=== PATIENT | male | born 1965 | race Caucasian/White ===

== ENCOUNTER 2019-03-07 08:04 | Observation (INO) ==
[2019-03-07] MEDS ORDERED: Ondansetron 4 MG/2 ML VIAL IVP ONE (08:13)
[2019-03-07] MEDS ORDERED: diazePAM 10 MG/2 ML SYRINGE IVP ONE ×2 (08:15→09:17)
--- NOTE | 2019-03-07 08:18 | Emergency Department Note ---
Disposition Clinical Impression: Chest pain Disposition: Admitted As Inpatient Condition: Fair General Adult HPI - General Chief complaint: ED Chest Pain Stated complaint: CP Time Seen by Provider: 03/07/19 08:12 Nursing Notes Reviewed: Yes Vital Signs Reviewed: Yes - Related Data Home Medications Medication Instructions Recorded Confirmed Albuterol Sulfate [Ventolin Hfa] 2 puff IH Q4H PRN 12/05/15 12/05/15 Budesonide/Formoterol 160/4.5 2 puff IH BIDR 12/05/15 12/05/15 [Symbicort 160/4.5] Citalopram Hydrobromide [Celexa] 40 mg PO DAILY 12/05/15 12/05/15 Fluticasone Propionate Nasal 1 spray NS BID 12/05/15 12/05/15 [Flonase] Folic Acid 0.4 mg PO DAILY 12/05/15 12/05/15 Losartan Potassium [Cozaar] 100 mg PO DAILY 12/05/15 12/05/15 Meloxicam [Mobic] 15 mg PO DAILY 12/05/15 12/05/15 Montelukast [Singulair] 10 mg PO HS 12/05/15 12/05/15 Multivitamin [Multi-Day Vitamins] 1 each PO DAILY 12/05/15 12/05/15 Oxygen 2 l NS AD 12/05/15 12/05/15 Paliperidone [Invega] 6 mg PO DAILY 12/05/15 12/05/15 Pantoprazole Sodium [Protonix] 40 mg PO DAILY 12/05/15 12/05/15 Pravastatin Sodium [Pravachol] 20 mg PO HS 12/05/15 12/05/15 diazePAM [Valium] 5 mg PO TID 12/05/15 12/05/15 lamoTRIgine [Lamictal] 200 mg PO BID 12/05/15 12/05/15 Previous Rx's Medication Instructions Recorded Aspirin Enteric Coated [Aspirin EC] 325 mg PO BID #60 tablet. 12/06/15 Docusate [Colace] 100 mg PO BID #60 capsule 12/06/15 OxyCODONE Immed Rel [Roxicodone 5 5 - 10 mg PO Q4HR PRN #60 tablet 12/06/15 MG] OxyCODONE/APAP 5/325 [Percocet 1 - 2 each PO Q4HR PRN #90 tablet 12/06/15 5/325 MG] Meloxicam 7.5 mg PO BID #20 tablet 08/27/17 Naproxen [Naprosyn] 250 mg PO BID #10 tablet 06/27/18 Allergies Allergy/AdvReac Type Severity Reaction Status Date / Time acetaminophen AdvReac Itching Verified 08/27/17 13:19 [From Tylenol-Codeine] cephalexin [From Keflex] AdvReac Nausea Verified 08/27/17 13:19 codeine AdvReac Itching Verified 08/27/17 13:19 [From Tylenol-Codeine] fluoxetine [From Prozac] AdvReac Difficulty Verified 08/27/17 13:19 Swallowing [place] AdvReac Dry Mucus Verified 08/27/17 13:19 Membranes tramadol AdvReac Irritable Verified 08/27/17 13:19 Past Medical History - Past Medical History Medical history: Reports: other Surgical history: Reports: herniorrhaphy, orthopedic, other, other Psychiatric history: Reports: anxiety, bipolar, depression - Social History Smoking Status: Former smoker Smokeless Tobacco Status: No Alcohol use: Reports: none Drug use: Reports: none Course Vital Signs Temperature 98.6 F 03/07/19 08:09 Pulse Rate 93 03/07/19 08:09 Respiratory Rate 22 03/07/19 08:09 Blood Pressure 117/82 03/07/19 08:09 O2 Sat by Pulse Oximetry 98 03/07/19 08:09 Temperature 98.6 F 03/07/19 08:16 Pulse Rate 70 03/07/19 10:49 Respiratory Rate 22 03/07/19 10:49 Blood Pressure 134/83 03/07/19 10:49 O2 Sat by Pulse Oximetry 93 03/07/19 10:49 Oxygen Delivery Oxygen Delivery Room Air Medical Decision Making - [facility] Narrative Medical decision making narrative: Chest X-Ray 03/07/19 08:13 IMPRESSION: No acute process. Dextrocardia. D/ / Vinicius Mcdonald MD / Vinicius Mcdonald MD Interpreting Provider: Vinicius Mcdonald MD 0957 hrs.: After 3 nitros his chest pain is gone. His heart score is in the moderate range. We will bring him into the hospital. He is in agreement with plan. Impression is chest pain. And today has a pain chronic use, and anxiety. - Lab Data Result diagrams: 03/07/19 08:37 03/07/19 08:37 Lab Results 03/07/19 03/07/19 03/07/19 Range/Units 08:37 08:37 09:50 WBC 10.3 (4.3-11.1) K/mcL RBC 4.70 (4.19-5.50) M/mcL Hgb 14.2 (12.9-16.9) g/dL Hct 40.3 (37.5-50.1) % MCV 85.7 (83.0-100.0) fL MCH 30.2 (28.0-33.3) pg MCHC 35.2 (31.6-35.5) g/dL RDW 12.5 (11.5-14.5) % Plt Count 214 (140-400) K/mcL MPV 10.6 (9.4-12.4) fL Immature Gran % 0.5 (0-4) % Seg Neutrophils % 66.8 % Lymphocytes % 21.2 % Monocytes % 8.1 % Eosinophils % 2.8 % Basophils % 0.6 % Neutrophils # 6.9 (1.6-8.9) K/mcL Lymphocytes # 2.2 (0.6-4.6) K/mcL Monocytes # 0.8 (0.0-1.3) K/mcL Eosinophils # 0.3 (0.0-0.6) K/mcL Basophils # 0.1 (0.0-0.2) K/mcL Sodium 139 (136-145) mEq/L Potassium 3.5 (3.5-5.1) mEq/L Chloride 104 (98-107) mEq/L Carbon Dioxide 29 (23-29) mEq/L BUN 9 (6-20) mg/dL Creatinine 0.81 (0.70-1.30) mg/dL Est GFR ( Amer) > 60 (> 60) Est GFR (Non-Af Amer) > 60 (> 60) BUN/Creatinine Ratio 11 (6-26) Glucose 101 (70-105) mg/dL Calculated Osmolality 287 (280-300) Calcium 9.4 (8.6-10.3) mg/dL Magnesium 2.1 (1.6-2.6) mg/dL Troponin I < 0.03 (< 0.04) ng/mL Urine Color Yellow (Yellow) Urine Clarity Clear (Clear) Urine pH 6.5 (5.0-8.0) pH Units Ur Specific [place] 1.008 L (1.010-1.025) Urine Protein Negative (Neg-Trace) mg/dL Urine Glucose (UA) Normal (Normal) mg/dL Urine Ketones Negative (Negative) mg/dL Urine Blood Negative (Negative) Urine Nitrite Negative (Negative) Urine Bilirubin Negative (Negative) Urine Urobilinogen Normal (Normal) mg/dL Ur Leukocyte Esterase Trace H (Negative) Urine Microscopic RBC 0-3 (0-3) per hpf Urine Microscopic WBC 0-3 (0-3) per hpf Ur Squamous Epith Cells Moderate H (None-Few) per lpf Urine Bacteria None Seen (None-Few) per hpf Hyaline Casts None Seen (None-Few) per lpf Ur Culture Indicated? YES A (NO) Urine Opiates Screen (Mrmwya=641) ng/mL Ur Barbiturates Screen (Fujvkb=981) ng/mL Ur Phencyclidine Scrn (Cutoff=25) ng/mL Ur Amphetamines Screen ([place]=1890) ng/mL U Benzodiazepines Scrn (Azsjjp=246) ng/mL Urine Cocaine Screen (Cutoff= 300) ng/mL U Marijuana (THC) Screen (Cutoff = 50) ng/mL Ur Drug Screen Interp 03/07/19 Range/Units 09:57 WBC (4.3-11.1) K/mcL RBC (4.19-5.50) M/mcL Hgb (12.9-16.9) g/dL Hct (37.5-50.1) % MCV (83.0-100.0) fL MCH (28.0-33.3) pg MCHC (31.6-35.5) g/dL RDW (11.5-14.5) % Plt Count (140-400) K/mcL MPV (9.4-12.4) fL Immature Gran % (0-4) % Seg Neutrophils % % Lymphocytes % % Monocytes % % Eosinophils % % Basophils % % Neutrophils # (1.6-8.9) K/mcL Lymphocytes # (0.6-4.6) K/mcL Monocytes # (0.0-1.3) K/mcL Eosinophils # (0.0-0.6) K/mcL Basophils # (0.0-0.2) K/mcL Sodium (136-145) mEq/L Potassium (3.5-5.1) mEq/L Chloride (98-107) mEq/L Carbon Dioxide (23-29) mEq/L BUN (6-20) mg/dL Creatinine (0.70-1.30) mg/dL Est GFR ( Amer) (> 60) Est GFR (Non-Af Amer) (> 60) BUN/Creatinine Ratio (6-26) Glucose (70-105) mg/dL Calculated Osmolality (280-300) Calcium (8.6-10.3) mg/dL Magnesium (1.6-2.6) mg/dL Troponin I (< 0.04) ng/mL Urine Color (Yellow) Urine Clarity (Clear) Urine pH (5.0-8.0) pH Units Ur Specific [place] (1.010-1.025) Urine Protein (Neg-Trace) mg/dL Urine Glucose (UA) (Normal) mg/dL Urine Ketones (Negative) mg/dL Urine Blood (Negative) Urine Nitrite (Negative) Urine Bilirubin (Negative) Urine Urobilinogen (Normal) mg/dL Ur Leukocyte Esterase (Negative) Urine Microscopic RBC (0-3) per hpf Urine Microscopic WBC (0-3) per hpf Ur Squamous Epith Cells (None-Few) per lpf Urine Bacteria (None-Few) per hpf Hyaline Casts (None-Few) per lpf Ur Culture Indicated? (NO) Urine Opiates Screen Negative (Kslrmq=665) ng/mL Ur Barbiturates Screen Negative ([place]=197) ng/mL Ur Phencyclidine Scrn Negative (Cutoff=25) ng/mL Ur Amphetamines Screen Positive H (Ebebts=9756) ng/mL U Benzodiazepines Scrn Positive H (Gclrfr=041) ng/mL Urine Cocaine Screen Negative (Cutoff= 300) ng/mL U Marijuana (THC) Screen Positive H (Cutoff = 50) ng/mL Ur Drug Screen Interp See Below Attestation Statement - Attestation Attestation: This documentation is done with the assistance of Edy dictation. Despite efforts made to ensure accuracy, there may be inaccuracies in validation manager or spelling and typographical errors. I examined this patient and my medical decision-making was reviewed with the Resident Physician. I agree with the documented findings, disposition and treatment plan as described except to the extent set forth below. Patient seen and evaluated on arrival with EMS and Dr. García, I agree with her evaluation and management plan, supervise care the patient's stay. Patient was doing methamphetamine last night between 8 PM and 4 AM this morning he was smoking it. Just started. Started having chest pain she called liv. Liv gave him baby aspirin one nitroglycerin which really did not do a lot he also takes Valium 10 mg 3 times a day as as this morning's were in a treat him do a workup cardiac- russell and reassess. He is in agreement with plan.
--- NOTE | 2019-03-07 08:22 | Emergency Department Note ---
Disposition Clinical Impression: Chest pain Qualifiers: Chest pain type: unspecified Qualified Code(s): R07.9 - Chest pain, unspecified Disposition: Admitted As Inpatient Condition: Fair Referrals: Dario Nguyen MD [Primary Care Provider] - Forms: ED Satisfaction Letter Time of Disposition: 10:07 Chest Pain HPI - General Chief Complaint: ED Chest Pain Stated Complaint: CP Time Seen by Provider: 03/07/19 08:12 Source: patient Mode of arrival: EMS Limitations: no limitations Vital Signs Reviewed: Yes Nursing Notes Reviewed: Yes - History of Present Illness HPI Narrative: Patient is a 53-year-old male who states that he was doing methamphetamine last night from 8 PM until 4 AM and reports onset of chest pain on the left side of his chest along with radiation into the right side of his jaw and down his right arm. Patient states that he started using methamphetamine approximately 2 weeks ago because he wanted to see what it was like. He reports taking a number of psychiatric medications which are listed on his medication list, but includes valium, of which he has not taken today. He also endorses lightheadedness, nausea, diaphoresis, blurry vision. He received 4 baby aspirin and 1 nitroglycerin en route with EMS. He reports the pain was initially 10/10, but after interventions is now 8/10. 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 Severity scale (1-10): 8 - Related Data Home Medications Medication Instructions Recorded Confirmed Albuterol Sulfate [Ventolin Hfa] 2 puff IH Q4H PRN 12/05/15 12/05/15 Budesonide/Formoterol 160/4.5 2 puff IH BIDR 12/05/15 12/05/15 [Symbicort 160/4.5] Citalopram Hydrobromide [Celexa] 40 mg PO DAILY 12/05/15 12/05/15 Fluticasone Propionate Nasal 1 spray NS BID 12/05/15 12/05/15 [Flonase] Folic Acid 0.4 mg PO DAILY 12/05/15 12/05/15 Losartan Potassium [Cozaar] 100 mg PO DAILY 12/05/15 12/05/15 Meloxicam [Mobic] 15 mg PO DAILY 12/05/15 12/05/15 Montelukast [Singulair] 10 mg PO HS 12/05/15 12/05/15 Multivitamin [Multi-Day Vitamins] 1 each PO DAILY 12/05/15 12/05/15 Oxygen 2 l NS AD 12/05/15 12/05/15 Paliperidone [Invega] 6 mg PO DAILY 12/05/15 12/05/15 Pantoprazole Sodium [Protonix] 40 mg PO DAILY 12/05/15 12/05/15 Pravastatin Sodium [Pravachol] 20 mg PO HS 12/05/15 12/05/15 diazePAM [Valium] 5 mg PO TID 12/05/15 12/05/15 lamoTRIgine [Lamictal] 200 mg PO BID 12/05/15 12/05/15 Previous Rx's Medication Instructions Recorded Aspirin Enteric Coated [Aspirin EC] 325 mg PO BID #60 tablet. 12/06/15 Docusate [Colace] 100 mg PO BID #60 capsule 12/06/15 OxyCODONE Immed Rel [Roxicodone 5 5 - 10 mg PO Q4HR PRN #60 tablet 12/06/15 MG] OxyCODONE/APAP 5/325 [Percocet 1 - 2 each PO Q4HR PRN #90 tablet 12/06/15 5/325 MG] Meloxicam 7.5 mg PO BID #20 tablet 08/27/17 Naproxen [Naprosyn] 250 mg PO BID #10 tablet 06/27/18 Allergies Allergy/AdvReac Type Severity Reaction Status Date / Time acetaminophen AdvReac Itching Verified 08/27/17 13:19 [From Tylenol-Codeine] cephalexin [From Keflex] AdvReac Nausea Verified 08/27/17 13:19 codeine AdvReac Itching Verified 08/27/17 13:19 [From Tylenol-Codeine] fluoxetine [From Prozac] AdvReac Difficulty Verified 08/27/17 13:19 Swallowing [place] AdvReac Dry Mucus Verified 08/27/17 13:19 Membranes tramadol AdvReac Irritable Verified 08/27/17 13:19 Review of Systems: All systems ED: reviewed and negative except as stated. Constitutional: Denies: fever, chills ENT ED: Denies: ear pain, throat pain Cardiovascular: Denies: palpitations Reports: chest pain with radiation to right jaw and right arm, diaphoresis, lightheadedness, blurry vision Respiratory: Denies: cough, dyspnea Gastrointestinal: Denies: abdominal pain, vomiting, diarrhea, constipation Reports: nausea Genitourinary: Denies: urgency, dysuria, frequency Musculoskeletal: Denies: back pain, neck pain Integumentary: Denies: rash, abrasion Neurological: Denies: weakness, numbness, paresthesias Reports: headache Psychiatric: Denies: depression Reports: anxiety Endocrine: Denies: fatigue, heat or cold intolerance Hematological/Lymphatic: Denies: easy bleeding, easy bruising Allergic/Immunologic: Denies: facial swelling, urticaria Chest Pain PMH - Past Medical History Medical history: Reports: hypertension, other Surgical history: Reports: herniorrhaphy, orthopedic, other, other Psychiatric history: Reports: anxiety, bipolar, depression - Social History Smoking Status: Current every day smoker Alcohol use: Reports: none Drug use: Reports: methamphetamine Physical Exam General: A&O x 3. Appears mildly distressed. Well developed, well nourished, obese male. Head: atraumatic, normocephalic. ENT: No conjunctival injection, no scleral icterus. PERRLA. EOMI. Oropharynx non- erythematous. mucous membranes moist, tongue stained yellow. Neuro: No gross focal deficits, no speech deficit, no facial droop, mentating well. BUE/BLE Str 5/5. Pulm: Pt states he cannot take a deep breath from the pain, lung sounds clear but diminished in bases. Cardio: RRR no m/r/g. Chest not tender to palpation. Abd: Soft, non-distended. Normoactive bowel sounds. Non-tender to palpation. No guarding. Non rigid. Extremities: Radial pulses 2+ iraj, dorsalis pedis/posterior tibialis 2+ iraj. No LE edema. No cyanosis, clubbing. Skin: warm, dry, intact. No rashes. Psych: Appropriate mood and affect. Answers questions appropriately. Cooperative with exam. - General Limitations: no limitations General appearance: alert Course Course Narrative: Ddx includes but is not limited to: ACS, vasospasm, aortic dissection, spont aneous PTX Workup will include: CBC, BMP, troponin, EKG, CXR. Will administer valium due to both meth use and did not take daily dose, nitroglycerin - Reevaluation(s) Reevaluation #1: CXR shows dextrocardia, EKG leads were placed to do right-sided EKG. Pt's QTc on original EKG was 593, zofran was d/c after RN pulled med but before it was administered. Time: 08:48 Vital Signs Temperature 98.6 F 03/07/19 08:09 Pulse Rate 93 03/07/19 08:09 Respiratory Rate 22 03/07/19 08:09 Blood Pressure 117/82 03/07/19 08:09 O2 Sat by Pulse Oximetry 98 03/07/19 08:09 Temperature 98.6 F 03/07/19 08:16 Pulse Rate 76 03/07/19 09:35 Respiratory Rate 15 03/07/19 09:35 Blood Pressure 152/95 03/07/19 09:35 O2 Sat by Pulse Oximetry 98 03/07/19 09:35 Oxygen Delivery Oxygen Delivery Nasal Cannula Chest Pain - MDM Narrative Medical decision making narrative: Patient's pain was resolved after administration of 2 more nitroglycerin while in the hospital, as well as 2 doses of 5 mg of IV Valium. Patient's EKG did not show any signs of ischemia, troponin was negative, chest x-ray did show dextr ocardia but did not show any acute cardiopulmonary findings. Patient's heart score is a 5, given patient's risk of hyperlipidemia, hypertension, smoking, positive family history for cardiac problems, as well as current methamphetamine use, patient could benefit from further inpatient cardiac workup. Patient has never been seen by a sign language interpreter. Patient was admitted to hospitalist, Dr. Garcia, who agreed to accept the patient to her service. Patient was given an opportunity to ask questions at bedside and all of their concerns were addressed. Patient verbalized understanding and agreement with plan of care. Pt remained stable while in the department. - Medical Records Medical records reviewed: Yes I reviewed the patient's medical records. - Lab Data Lab results reviewed: Yes I reviewed the patient's lab results. Result diagrams: 03/07/19 08:37 03/07/19 08:37 Lab Results 03/07/19 03/07/19 03/07/19 Range/Units 08:37 08:37 09:57 WBC 10.3 (4.3-11.1) K/mcL RBC 4.70 (4.19-5.50) M/mcL Hgb 14.2 (12.9-16.9) g/dL Hct 40.3 (37.5-50.1) % MCV 85.7 (83.0-100.0) fL MCH 30.2 (28.0-33.3) pg MCHC 35.2 (31.6-35.5) g/dL RDW 12.5 (11.5-14.5) % Plt Count 214 (140-400) K/mcL MPV 10.6 (9.4-12.4) fL Immature Gran % 0.5 (0-4) % Seg Neutrophils % 66.8 % Lymphocytes % 21.2 % Monocytes % 8.1 % Eosinophils % 2.8 % Basophils % 0.6 % Neutrophils # 6.9 (1.6-8.9) K/mcL Lymphocytes # 2.2 (0.6-4.6) K/mcL Monocytes # 0.8 (0.0-1.3) K/mcL Eosinophils # 0.3 (0.0-0.6) K/mcL Basophils # 0.1 (0.0-0.2) K/mcL Sodium 139 (136-145) mEq/L Potassium 3.5 (3.5-5.1) mEq/L Chloride 104 (98-107) mEq/L Carbon Dioxide 29 (23-29) mEq/L BUN 9 (6-20) mg/dL Creatinine 0.81 (0.70-1.30) mg/dL Est GFR ( Amer) > 60 (> 60) Est GFR (Non-Af Amer) > 60 (> 60) BUN/Creatinine Ratio 11 (6-26) Glucose 101 (70-105) mg/dL Calculated Osmolality 287 (280-300) Calcium 9.4 (8.6-10.3) mg/dL Troponin I < 0.03 (< 0.04) ng/mL Ur Drug Screen Interp See Below - Radiology Data Radiology results reviewed: Yes I reviewed the patient's radiology results. Chest X-Ray 03/07/19 08:13 IMPRESSION: No acute process. Dextrocardia. D/ / Vinicius Mcdonald MD / Vinicius Mcdonald MD Interpreting Provider: Vinicius Mcdonald MD - EKG Data EKG attestation: Yes I reviewed and interpreted this EKG. EKG results narrative: 0810 with leads in traditional locations: HR 85, rhythm sinus, axis rightward. P R 172, QRS 86, QTc 593 and prolonged. Baseline wander affects interpretation of study. NO ST elevation or depression. No LVH. No old EKG available for comparison. Poor r wave progression. 0846 with right sided leads: HR 87, rhythm sinus, axis right at 187. SC 219 and prolonged, QRS 88, QTc [address] elevation or depression. Heart Score - Score History: Highly Suspicious EKG: Normal Age: 45-65 Risk Factors: Equal/Greater than 3 risk factor or history of atherosclerotic disease Troponin: Less than normal limit HEART Score Total: 5
[2019-03-07] MEDS: Nitroglycerin 0.4 MG TAB.SUBL SL PRN ×3 (08:39→08:50)
[2019-03-07 08:46] LABS: Basophils # 0.1 K/mcL (0.0-0.2); Basophils % 0.6 %; Eosinophils # 0.3 K/mcL (0.0-0.6); Eosinophils % 2.8 %; Hematocrit 40.3 % (37.5-50.1); Hemoglobin 14.2 g/dL (12.9-16.9); Immature Granulocytes % 0.5 % (0-4); Lymphocytes # 2.2 K/mcL (0.6-4.6); Lymphocytes % 21.2 %; Mean Corpuscular HGB Conc 35.2 g/dL (31.6-35.5); Mean Corpuscular Hemoglobin 30.2 pg (28.0-33.3); Mean Corpuscular Volume 85.7 fL (83.0-100.0); Mean Platelet Volume 10.6 fL (9.4-12.4); Monocytes # 0.8 K/mcL (0.0-1.3); Monocytes % 8.1 %; Neutrophils # 6.9 K/mcL (1.6-8.9); Platelet Count 214 K/mcL (140-400); Red Cell Distribution Width 12.5 % (11.5-14.5); Segmented Neutrophils % 66.8 %
[2019-03-07 09:14] LABS: BUN/Creatinine Ratio 11 (6-26); Blood Urea Nitrogen 9 mg/dL (6-20); Calcium 9.4 mg/dL (8.6-10.3); Carbon Dioxide 29 mEq/L (23-29); Chloride 104 mEq/L (98-107); Glucose 101 mg/dL (70-105); Osmolality,Calculated 287 (280-300); Potassium 3.5 mEq/L (3.5-5.1); Sodium 139 mEq/L (136-145); Troponin I < 0.03 ng/mL (< 0.04); eGFR For Non-African Americans > 60 (> 60)
--- NOTE | 2019-03-07 09:43 | Electrocardiograph Report ---
[place] [id number] Test Date: 2019-03-07 Pat Name: Colby Thomas Department: [id number] Room: Gender: M Manager Contracting: : 1965 Requested By: Aretha García Order Number: [id number] Reading MD: Anabell Islas Measurements Intervals Mobile Rate: 87 P: 214 SC: 219 QRS: 187 QRSD: 88 T: 158 QT: 449 QTc: 541 Interpretive Statements Right and left arm electrode reversal Sinus or ectopic atrial rhythm Nonspecific ST abnormalities Prolonged QT interval Electronically Signed On 03-07-2019 9:41:35 EDT by Anabell Islas
[2019-03-07 10:10] LABS: Bilirubin,Urine Negative (Negative); Blood,Urine Negative (Negative); Clarity,Urine Clear (Clear); Color,Urine Yellow (Yellow); Glucose,Urine (UA) Normal (Normal); Ketones,Urine Negative (Negative); Leukocyte Esterase,Urine Trace (Negative); Nitrite,Urine Negative (Negative); PH,Urine 6.5 pH Units (5.0-8.0); Protein,Urine Negative (Neg-Trace); Specific Gravity,Urine 1.008 (1.010-1.025); Urobilinogen,Urine Normal (Normal)
[2019-03-07 10:11] LABS: Bacteria,Urine None Seen per hpf (None-Few); Hyaline Casts,Urine None Seen per lpf (None-Few); RBC,Urine 0-3 per hpf (0-3); Squamous Epithelial Cell,Urine Moderate per lpf (None-Few); WBC,Urine 0-3 per hpf (0-3)
[2019-03-07] MEDS ORDERED: Naloxone 0.4 MG/ML INJ IVP PRN (10:13)
[2019-03-07] MEDS ORDERED: Aspirin 81 MG TAB.CHEW PO STA (10:16)
[2019-03-07 10:29] LABS: Amphetamine Screen,Urine Positive ng/mL (Cutoff=1000); Barbiturate Screen,Urine Negative ng/mL (Cutoff=200); Benzodiazepines Screen,Urine Positive ng/mL (Cutoff=200); Cannabinoid Screen,Urine Positive ng/mL (Cutoff = 50); Cocaine Screen,Urine Negative ng/mL (Cutoff= 300); Opiate Screen,Urine Negative ng/mL (Cutoff=300); Phencyclidine Screen,Urine Negative ng/mL (Cutoff=25)
[2019-03-07 10:35] LABS: Magnesium 2.1 mg/dL (1.6-2.6)
--- NOTE | 2019-03-07 10:50 | Internal Med History&Physical ---
Date of Encounter: 03/07/19 Time of Encounter: 10:46 Internal Medicine - H&P: HPI Chief complaint: chest pain Admitted From: Home Plans for Post Hospital Care: Home History of present illness: Mr. Thomas is a 53 year old male with history of COPD, obesity, HTN and DM presentedto [facility] with complaint of chest pain as per patient he has deborah up all night smiking "Dope" at about 4 AM he stopped using illicit drugs and develoepd sudden onset of chest pain that is located in the left side of his chest and radiates to the right neck. he describes the pain as 10/10 on severity and sharp in nature. denies previous episodes of the pain. denies chest trauma, leg swelling history of blood clots, DVts or PE in the past. he is an everyday smoker with up to 2 packs of cigarettes. he denies alcohol use. denies fever, chils, SOB, palpitations, PND, orthopnea, N/v/D. denies SI or HI while in the ED he was found to have tox positive methamphetamines, benzo and marijuana. troponin was negative, CXR showed dextrocardia without acute process and he was endorsed for admission of chest pain. 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 - Social History Smoking Status: Current every day smoker Smokeless Tobacco Status: No Alcohol use: none Drug use: methamphetamine - Family History Daughter Living Status: Still Living Hx Family Cardiac Disorders: No Hx Family Respiratory Disorders: No Hx Family Cancer: No Hx Family Neuromuscular Disorders: Yes (fibromyalgia) Internal Medicine - H&P: Meds Albuterol Sulfate [Ventolin Hfa] 2 puff IH Q4H PRN 12/05/15 [History] Budesonide/Formoterol 160/4.5 [Symbicort 160/4.5] 2 puff IH BIDR 12/05/15 [Hi story] Citalopram Hydrobromide [Celexa] 40 mg PO DAILY 12/05/15 [History] Fluticasone Propionate Nasal [Flonase] 1 spray NS BID 12/05/15 [History] Folic Acid 0.4 mg PO DAILY 12/05/15 [History] Losartan Potassium [Cozaar] 100 mg PO DAILY 12/05/15 [History] Meloxicam [Mobic] 15 mg PO DAILY 12/05/15 [History] Montelukast [Singulair] 10 mg PO HS 12/05/15 [History] Multivitamin [Multi-Day Vitamins] 1 each PO DAILY 12/05/15 [History] Oxygen 2 l NS AD 12/05/15 [History] Paliperidone [Invega] 6 mg PO DAILY 12/05/15 [History] Pantoprazole Sodium [Protonix] 40 mg PO DAILY 12/05/15 [History] Pravastatin Sodium [Pravachol] 20 mg PO HS 12/05/15 [History] diazePAM [Valium] 5 mg PO TID 12/05/15 [History] lamoTRIgine [Lamictal] 200 mg PO BID 12/05/15 [History] Aspirin Enteric Coated [Aspirin EC] 325 mg PO BID #60 tablet. 12/06/15 [Rx] Docusate [Colace] 100 mg PO BID #60 capsule 12/06/15 [Rx] OxyCODONE Immed Rel [Roxicodone 5 MG] 5 - 10 mg PO Q4HR PRN #60 tablet 12/06/15 [Rx] OxyCODONE/APAP 5/325 [Percocet 5/325 MG] 1 - 2 each PO Q4HR PRN #90 tablet 12/06/15 [Rx] Meloxicam 7.5 mg PO BID #20 tablet 08/27/17 [Rx] Naproxen [Naprosyn] 250 mg PO BID #10 tablet 06/27/18 [Rx] Allergy/AdvReac Type Severity Reaction Status Date / Time acetaminophen AdvReac Itching Verified 08/27/17 13:19 [From Tylenol-Codeine] cephalexin [From Keflex] AdvReac Nausea Verified 08/27/17 13:19 codeine AdvReac Itching Verified 08/27/17 13:19 [From Tylenol-Codeine] fluoxetine [From Prozac] AdvReac Difficulty Verified 08/27/17 13:19 Swallowing [place] AdvReac Dry Mucus Verified 08/27/17 13:19 Membranes tramadol AdvReac Irritable Verified 08/27/17 13:19 All Systems PM: A 10-system review of systems was performed and is negative for pertinent findings except as documented above in the HPI. - Constitutional Vitals: Temp Pulse Resp BP Pulse Ox 98.6 F 76 15 152/95 98 03/07/19 08:16 03/07/19 09:35 03/07/19 09:35 03/07/19 09:35 03/07/19 09:35 Exam: General: Patient is alert, oriented, no acute distress, morbidly obese Head: atraumatic, normocephalic, Eye: normal appearance, PERRL, no scleral icterus, no conjunctival injection ENT: mucous membranes moist, normal external ear exam Neck: normal inspection, trachea midline, full ROM, no carotid bruits Chest: normal inspection, symmetric chest rise Respiratory: distant breath sounds secondary to body habitus, Good respiratory effort. Bilateral breath sounds are clear without wheezing, crackles, or rhonchi. Cardiovascular: distant heart sounds secondary to body habitus, heart sounds in the right chest , Regular rate and rhythm. s1 and s2 No clicks, rubs, gallops, or murmors. Abdomen: Bowel sounds present normoactive x-4 quadrants. Abdomen is soft, nondistended. no Epigastric tenderness. No guarding or rebound. No organomegaly noted, obese musculoskeletal: Spontaneously moving all extremities. no edema, no calf tenderness Skin: warm, dry, intact. Neuro: Alert and oriented x4. no focal deficit Psych: Patient's affect is normal, denies SI or HI Internal Med - H&P Results - Labs CBC & Chem 7: 03/07/19 08:37 03/07/19 08:37 Labs: Short CBC 03/07/19 Range/Units 08:37 WBC 10.3 (4.3-11.1) K/mcL Hgb 14.2 (12.9-16.9) g/dL Hct 40.3 (37.5-50.1) % Plt Count 214 (140-400) K/mcL Neutrophils # 6.9 (1.6-8.9) K/mcL BMP 03/07/19 08:37 Sodium 139 Potassium 3.5 Chloride 104 Carbon Dioxide 29 BUN 9 Creatinine 0.81 Glucose 101 Calcium 9.4 Cardiac Enzymes 03/07/19 Range/Units 08:37 Troponin I < 0.03 (< 0.04) ng/mL Urine 03/07/19 Range/Units 09:50 Urine Color Yellow (Yellow) Urine Clarity Clear (Clear) Urine pH 6.5 (5.0-8.0) pH Units Ur Specific [place] 1.008 L (1.010-1.025) Urine Protein Negative (Neg-Trace) mg/dL Urine Glucose (UA) Normal (Normal) mg/dL - EKG Data -: EKG Interpreted by Myself (lead reversal ( has dextrecardia) nonspecif St-T , prolonged QT 541) - EKG Data Prior EKG available for review: no - Impressions ITS Impressions Chest X-Ray 03/07/19 08:13 IMPRESSION: No acute process. Dextrocardia. D/ / Vinicius Mcdonald MD / Vinicius Mcdonald MD Interpreting Provider: Vinicius Mcdonald MD - Assessment and Plan (1) Chest pain Current Visit: Yes Status: Acute Assessment and plan: chest pain most likely secondary to illicit drug use rule out ACS obtain another EKG with leads properly placed as he has dextrocardia cardiac monitoring ASA 325 mg one continue with ASA 81 mg daily serial troponins and ekgs echocardiogram continue with home medications if not CI NTG PRN for chest pain lipd panel, TSh and A1c in AM Qualifiers: Chest pain type: precordial pain Qualified Code(s): R07.2 - Precordial pain (2) Drug use disorder Current Visit: Yes Status: Acute Assessment and plan: utox positive for amphetamines and marijuana positive benzos however is prescribed valium (3) Prolonged QT interval Current Visit: Yes Status: Acute Assessment and plan: QT of 541 magnesium STAT potassium was 3.5- replaced with 40 MEQ oral once maintain potassium >4 and magnesium >2 serial EKGs telemetry (4) Bipolar 1 disorder Current Visit: No Status: Chronic Assessment and plan: continue home medications if not CI (5) COPD (chronic obstructive pulmonary disease) Current Visit: No Status: Chronic Assessment and plan: continue with home medications Qualifiers: COPD type: unspecified COPD Qualified Code(s): J44.9 - Chronic obstructive pulmonary disease, unspecified (6) Diabetes mellitus Current Visit: No Status: Chronic Assessment and plan: insulin sliding scale A1c in AM adjust as per finger sticks Qualifiers: Diabetes mellitus type: type 2 Diabetes mellitus residential insulin use: without pneumatic tube repairer use Diabetes mellitus complication status: without complication Qualified Code(s): E11.9 - Type 2 diabetes mellitus without complications (7) Hypertension Current Visit: No Status: Chronic Assessment and plan: continue home medications if not CI Qualifiers: Hypertension type: essential hypertension Qualified Code(s): I10 - Essential (primary) hypertension (8) Obesity Current Visit: No Status: Chronic Assessment and plan: nutrition consult was counseled Qualifiers: Obesity type: due to excess calories Obesity classification: adult class 2 (BMI 35 - 39.9) Body mass index: BMI 37.0-37.9 Qualified Code(s): E66.01 - Morbid (severe) obesity due to excess calories; Z68.37 - Body mass index (BMI) 37.0-37.9, adult (9) GERD (gastroesophageal reflux disease) Current Visit: No Status: Chronic Assessment and plan: continue with home medications Qualifiers: Esophagitis presence: esophagitis presence not specified Qualified Code(s): K21.9 - Gastro-esophageal reflux disease without esophagitis (10) DVT prophylaxis Current Visit: Yes Status: Acute Assessment and plan: heparin sc - Time Spent With Patient Total time spent is greater than 50% in coordination of care (as documented) at patient's floor/unit and/or counseling patient:
[2019-03-07] MEDS ORDERED: *HR* Morphine 2 MG/ML SYRINGE IVP PRN (12:00)
[2019-03-07] MEDS ORDERED: D5% in Water 1,000 ML IVC PRN (12:01)
[2019-03-07] MEDS ORDERED: Dextrose Gel 15 GM/37.5 ML TUBE PO PRN ×2 (12:01)
[2019-03-07] MEDS ORDERED: *HR* Dextrose 50 % in Water (Syg) 50 ML SYRINGE IVP PRN (12:01)
[2019-03-07 12:02] VITALS: BP 154/91
[2019-03-07] MEDS ORDERED: *HR* Heparin 5,000 UNIT/ML VIAL SQ SCH (14:00)
[2019-03-07] MEDS ORDERED: diazePAM 5 MG TABLET PO SCH (15:00)
[2019-03-07] MEDS ORDERED: Insulin LISPRO 300 UNITS/3 ML VIAL SQ SCH ×2 (16:30→21:00)
[2019-03-07] MEDS ORDERED: Budesonide/Formoterol 160/4.5 1 PUFF INH IH SCH (22:00)
--- NOTE | 2019-03-08 12:18 | Discharge Summary ---
Orders not resulted at time of discharge: Pending orders 03/07/19 09:50 Culture,Urine [RM] Stat Date of Encounter: 03/07/19 Time of Encounter: 15:00 - Discharge Diagnosis (1) Chest pain Priority: Primary Status: Acute Qualifiers: Chest pain type: precordial pain Qualified Code(s): R07.2 - Precordial pain (2) Drug use disorder Priority: Secondary Status: Acute (3) Prolonged QT interval Priority: Secondary Status: Acute (4) Bipolar 1 disorder Priority: Secondary Status: Chronic (5) COPD (chronic obstructive pulmonary disease) Priority: Secondary Status: Chronic Qualifiers: COPD type: unspecified COPD Qualified Code(s): J44.9 - Chronic obstructive pulmonary disease, unspecified (6) Diabetes mellitus Priority: Secondary Status: Chronic Qualifiers: Diabetes mellitus type: type 2 Diabetes mellitus moth exterminator insulin use: without moth exterminator use Diabetes mellitus complication status: without complication Qualified Code(s): E11.9 - Type 2 diabetes mellitus without complications (7) Hypertension Priority: Secondary Status: Chronic Qualifiers: Hypertension type: essential hypertension Qualified Code(s): I10 - Es sential (primary) hypertension (8) Obesity Priority: Secondary Status: Chronic Qualifiers: Obesity type: due to excess calories Obesity classification: adult class 2 (BMI 35 - 39.9) Body mass index: BMI 37.0-37.9 Qualified Code(s): E66.01 - Morbid (severe) obesity due to excess calories; Z68.37 - Body mass index (BMI) 37.0-37.9, adult (9) GERD (gastroesophageal reflux disease) Priority: Secondary Status: Chronic Qualifiers: Esophagitis presence: esophagitis presence not specified Qualified Code(s): K21.9 - Gastro-esophageal reflux disease without esophagitis (10) DVT prophylaxis Priority: Secondary Status: Acute Hospital course: Mr. Thomas is a 53 year old male with history of COPD, obesity, HTN and DM [facility] with complaint of chest pain as per patient he has deborah up all night smiking "Dope" at about 4 AM he stopped using illicit drugs and develoepd sudden onset of chest pain that is located in the left side of his chest and radiates to the right neck. he describes the pain as 10/10 on severity and sharp in nature. denies previous episodes of the pain. denies chest trauma, leg swelling history of blood clots, DVts or PE in the past. he is an everyday smoker with up to 2 packs of cigarettes. he denies alcohol use. denies fever, chils, SOB, palpitations, PND, orthopnea, N/v/D. denies SI or HI while in the ED he was found to have tox positive methamphetamines, benzo and marijuana. troponin was negative, CXR showed dextrocardia without acute process and he was endorsed for admission of chest pain. Patient wanted to sign AMA and go to home. Explained to the patient the importance of disease management in the hospital and risk of signing out AMA. pt understood complication of not being cooperative with treatment management that includes but not limited to even . Patient signed AMA. Witnessed by nurse. - Time Spent with Patient Total time spent providing and/or coordinating discharge services: - Discharge Medications Prescriptions: No Action Folic Acid 0.4 mg PO DAILY Citalopram Hydrobromide [Celexa] 40 mg PO DAILY Budesonide/Formoterol 160/4.5 [Symbicort 160/4.5] 2 puff IH BIDR Albuterol Sulfate [Ventolin Hfa] 2 puff IH Q4H PRN PRN Reason: Shortness Of Breath Pravastatin Sodium [Pravachol] 20 mg PO HS lamoTRIgine [Lamictal] 200 mg PO BID diazePAM [Valium] 5 mg PO TID Pantoprazole Sodium [Protonix] 40 mg PO DAILY Losartan Potassium [Cozaar] 100 mg PO DAILY Multivitamin [Multi-Day Vitamins] 1 each PO DAILY Montelukast [Singulair] 10 mg PO HS Fluticasone Propionate Nasal [Flonase] 1 spray NS BID Aspirin Enteric Coated [Aspirin EC] 325 mg PO BID #60 tablet. Docusate [Colace] 100 mg PO BID #60 capsule Gabapentin [Neurontin] 800 mg PO TID Home Medications: Albuterol Sulfate [Ventolin Hfa] 2 puff IH Q4H PRN 12/05/15 [History] Budesonide/Formoterol 160/4.5 [Symbicort 160/4.5] 2 puff IH BIDR 12/05/15 [History] Citalopram Hydrobromide [Celexa] 40 mg PO DAILY 12/05/15 [History] Fluticasone Propionate Nasal [Flonase] 1 spray NS BID 12/05/15 [History] Folic Acid 0.4 mg PO DAILY 12/05/15 [History] Losartan Potassium [Cozaar] 100 mg PO DAILY 12/05/15 [History] Montelukast [Singulair] 10 mg PO HS 12/05/15 [History] Multivitamin [Multi-Day Vitamins] 1 each PO DAILY 12/05/15 [History] Pantoprazole Sodium [Protonix] 40 mg PO DAILY 12/05/15 [History] Pravastatin Sodium [Pravachol] 20 mg PO HS 12/05/15 [History] diazePAM [Valium] 5 mg PO TID 12/05/15 [History] lamoTRIgine [Lamictal] 200 mg PO BID 12/05/15 [History] Aspirin Enteric Coated [Aspirin EC] 325 mg PO BID #60 tablet. 12/06/15 [Rx] Docusate [Colace] 100 mg PO BID #60 capsule 12/06/15 [Rx] Gabapentin [Neurontin] 800 mg PO TID 03/07/19 [History] Allergies/Adverse Reactions: Allergy/AdvReac Type Severity Reaction Status Date / Time acetaminophen AdvReac Itching Verified 08/27/17 13:19 [From Tylenol-Codeine] cephalexin [From Keflex] AdvReac Nausea Verified 08/27/17 13:19 codeine AdvReac Itching Verified 08/27/17 13:19 [From Tylenol-Codeine] fluoxetine [From Prozac] AdvReac Difficulty Verified 08/27/17 13:19 Swallowing [place] AdvReac Dry Mucus Verified 08/27/17 13:19 Membranes tramadol AdvReac Irritable Verified 08/27/17 13:19 Date of admission: 03/07/19 10:12 Primary care physician: Dario Nguyen MD - Constitutional Vitals: Temp Pulse Resp BP Pulse Ox 98.2 F 67 17 154/91 100 03/07/19 12:00 03/07/19 12:00 03/07/19 12:00 03/07/19 12:00 03/07/19 12:00 Exam: General: Patient is alert, oriented, no acute distress, morbidly obese Head: atraumatic, normocephalic, Eye: normal appearance, PERRL, no scleral icterus, no conjunctival injection ENT: mucous membranes moist, normal external ear exam Neck: normal inspection, trachea midline, full ROM, no carotid bruits Chest: normal inspection, symmetric chest rise Respiratory: distant breath sounds secondary to body habitus, Good respiratory effort. Bilateral breath sounds are clear without wheezing, crackles, or rhonchi. Cardiovascular: distant heart sounds secondary to body habitus, heart sounds in the right chest , Regular rate and rhythm. s1 and s2 No clicks, rubs, gallops, or murmors. Abdomen: Bowel sounds present normoactive x-4 quadrants. Abdomen is soft, nondistended. no Epigastric tenderness. No guarding or rebound. No organomegaly noted, obese musculoskeletal: Spontaneously moving all extremities. no edema, no calf tenderness Skin: warm, dry, intact. Neuro: Alert and oriented x4. no focal deficit Psych: Patient's affect is normal, denies SI or HI - Patient Status Disposition: Left Against Medical Advice Condition: Fair - Discharge Instructions Follow Up With: Dario Nguyen MD [Primary Care Provider] -
== END 2019-03-07 12:15 | disposition left against medical advice (07) ==
LOC: EMEROOARM 08:04 → 3BNU 08:04
PROVIDERS: ADMIT Internal Medicine; ATTEND Internal Medicine

== ENCOUNTER 2019-03-07 14:52 | Observation (INO) ==
[2019-03-07] MEDS ORDERED: Nitroglycerin 0.4 MG TAB.SUBL SL PRN (15:34)
--- NOTE | 2019-03-07 15:49 | Emergency Department Note ---
Disposition Clinical Impression: Methamphetamine use, Dextrocardia, Situs inversus Chest pain Qualifiers: Chest pain type: unspecified Qualified Code(s): R07.9 - Chest pain, unspecified Disposition: Admitted As Inpatient Condition: Fair Time of Disposition: 16:49 Chest Pain HPI - General Chief Complaint: ED Chest Pain Stated Complaint: CP Time Seen by Provider: 03/07/19 15:15 Source: patient Limitations: no limitations Vital Signs Reviewed: Yes Nursing Notes Reviewed: Yes - History of Present Illness HPI Narrative: 53 yo male who was seen and admitted to this hospital earlier today for chest pain secondary to methamphetamine usage. The patient states that he started smoking meth at approximately 8 PM last night and continued to smoke until 4:00 this morning when he noticed some throbbing chest pain. The chest pain is not uncommon for him when he smokes meth and he states he stopped smoking thinking the chest pain would go away. Instead of going await the chest pain continued to increase and he became worried. He was originally seen and admitted to the hospitalist Dr. Garcia, but after being admitted the patient left AMA to "deal with some things at home because I do not trust anyone in my neighborhood". The patient states this chest pain has never completely gone away. He states that the patient's given to him and his visit earlier today did help some with this chest pain but now the chest pain has gotten worse. He also admits to constant shortness of breath and pain radiating up to the right side of his jaw. He does have a cold sweaty feeling and feels nauseous but has not vomited. He denies doing any more meth when he got home earlier today. He is agreeable with admission after repeat testing at this visit. Patient has a history of hypertension, diabetes and dextrocardia/situs inversus. He is a current everyday smoker. Severity scale (1-10): 9 - Related Data Home Medications Medication Instructions Recorded Confirmed Albuterol Sulfate [Ventolin Hfa] 2 puff IH Q4H PRN 12/05/15 03/07/19 Budesonide/Formoterol 160/4.5 2 puff IH BIDR 12/05/15 03/07/19 [Symbicort 160/4.5] Citalopram Hydrobromide [Celexa] 40 mg PO DAILY 12/05/15 03/07/19 Fluticasone Propionate Nasal 1 spray NS BID 12/05/15 03/07/19 [Flonase] Folic Acid 0.4 mg PO DAILY 12/05/15 03/07/19 Losartan Potassium [Cozaar] 100 mg PO DAILY 12/05/15 03/07/19 Montelukast [Singulair] 10 mg PO HS 12/05/15 03/07/19 Multivitamin [Multi-Day Vitamins] 1 each PO DAILY 12/05/15 03/07/19 Pantoprazole Sodium [Protonix] 40 mg PO DAILY 12/05/15 03/07/19 Pravastatin Sodium [Pravachol] 20 mg PO HS 12/05/15 03/07/19 diazePAM [Valium] 5 mg PO TID 12/05/15 03/07/19 lamoTRIgine [Lamictal] 200 mg PO BID 12/05/15 03/07/19 Gabapentin [Neurontin] 800 mg PO TID 03/07/19 03/07/19 Previous Rx's Medication Instructions Recorded Aspirin Enteric Coated [Aspirin EC] 325 mg PO BID #60 tablet. 12/06/15 Docusate [Colace] 100 mg PO BID #60 capsule 12/06/15 diazePAM [Valium] 10 mg PO TID 3 Days #9 tablet 03/08/19 Allergies Allergy/AdvReac Type Severity Reaction Status Date / Time acetaminophen AdvReac Itching Verified 08/27/17 13:19 [From Tylenol-Codeine] cephalexin [From Keflex] AdvReac Nausea Verified 08/27/17 13:19 codeine AdvReac Itching Verified 08/27/17 13:19 [From Tylenol-Codeine] fluoxetine [From Prozac] AdvReac Difficulty Verified 08/27/17 13:19 Swallowing [place] AdvReac Dry Mucus Verified 08/27/17 13:19 Membranes tramadol AdvReac Irritable Verified 08/27/17 13:19 All systems ED: reviewed and negative except as stated. Review of Systems: As Per HPI Constitutional: Reports: chills, weakness. Denies: fever Eyes: Denies: vision change ENT ED: Reports: other (jaw pain) Cardiovascular: Reports: chest pain, palpitations, dyspnea on exertion Respiratory: Reports: dyspnea. Denies: cough, wheezes, hemoptysis Gastrointestinal: Reports: nausea. Denies: abdominal pain, vomiting, diarrhea Musculoskeletal: Reports: neck pain. Denies: back pain Integumentary: Denies: rash, abrasion, lesions Neurological: Reports: weakness. Denies: headache, numbness, paresthesias Endocrine: Reports: fatigue Chest Pain PMH - Past Medical History Medical history: Reports: hypertension, other Surgical history: Reports: herniorrhaphy, orthopedic, other, other Psychiatric history: Reports: anxiety, bipolar, depression - Social History Smoking Status: Current every day smoker Alcohol use: Reports: none Drug use: Reports: methamphetamine Physical Exam - General Limitations: no limitations General appearance: alert, in no apparent distress - Head Head exam: atraumatic, normocephalic - Eye Eye exam: Present: normal appearance, PERRL, EOMI - ENT ENT exam: normal exam, normal oropharynx - Neck Neck exam: Present: normal inspection. Absent: tenderness, lymphadenopathy - Chest Chest inspection: Present: normal inspection, symmetric chest wall rise. Absent: tenderness, rash - Respiratory Respiratory exam: Present: normal lung sounds bilaterally. Absent: wheezes - Cardiovascular Cardiovascular exam: Present: regular rate, normal rhythm - Abdominal Exam Abdominal exam: Present: soft, Non-Tender. Absent: distention, guarding, rebound, rigidity - Extremities Exam Extremities exam: Present: normal inspection. Absent: tenderness, pedal edema - Neurological Exam Neurological exam: Present: alert, oriented X3, CN II-XII intact. Absent: motor sensory deficit - Psychiatric Psychiatric exam: Present: flat affect - Skin Skin exam: Present: warm, dry, intact Course Vital Signs Temperature 98.2 F 03/07/19 15:00 Pulse Rate 92 03/07/19 15:00 Respiratory Rate 18 03/07/19 15:00 Blood Pressure 111/72 03/07/19 15:00 O2 Sat by Pulse Oximetry 96 03/07/19 15:00 Temperature 98.2 F 03/07/19 15:00 Pulse Rate 92 03/07/19 15:00 Respiratory Rate 18 03/07/19 15:00 Blood Pressure 111/72 03/07/19 15:00 O2 Sat by Pulse Oximetry 96 03/07/19 15:00 Oxygen Delivery Oxygen Delivery Room Air Chest Pain - MDM Narrative Medical decision making narrative: Patient returns to the emergency department with worsening chest pain after being admitted and leaving AMA earlier today. He denies further drug use and states he is willing to be admitted at this time. The patient will have repeat labwork drawn as well as a repeat CXR and EKG. Disposition is likely admission for further cardiac workup. 1645 - Labwork, EKG and CXR are unchanged from previous done earlier today. Pts chest pain has improved with the administration of SL nitroglycerin. The patient has been accepted for admission by Dr. Garcia. - Medical Records Medical records reviewed: Yes I reviewed the patient's medical records. - Lab Data Lab results reviewed: Yes I reviewed the patient's lab results. Result diagrams: 03/08/19 03:19 03/08/19 03:19 Lab Results 03/07/19 03/07/19 Range/Units 15:22 15:22 WBC 9.6 (4.3-11.1) K/mcL RBC 4.63 (4.19-5.50) M/mcL Hgb 13.8 (12.9-16.9) g/dL Hct 40.5 (37.5-50.1) % MCV 87.5 (83.0-100.0) fL MCH 29.8 (28.0-33.3) pg MCHC 34.1 (31.6-35.5) g/dL RDW 12.9 (11.5-14.5) % Plt Count 211 (140-400) K/mcL MPV 10.6 (9.4-12.4) fL Immature Gran % 0.3 (0-4) % Seg Neutrophils % 60.4 % Lymphocytes % 26.9 % Monocytes % 9.1 % Eosinophils % 2.9 % Basophils % 0.4 % Neutrophils # 5.8 (1.6-8.9) K/mcL Lymphocytes # 2.6 (0.6-4.6) K/mcL Monocytes # 0.9 (0.0-1.3) K/mcL Eosinophils # 0.3 (0.0-0.6) K/mcL Basophils # 0.0 (0.0-0.2) K/mcL Sodium 141 (136-145) mEq/L Potassium 3.5 (3.5-5.1) mEq/L Chloride 106 (98-107) mEq/L Carbon Dioxide 31 H (23-29) mEq/L BUN 8 (6-20) mg/dL Creatinine 0.81 (0.70-1.30) mg/dL Est GFR ( Amer) > 60 (> 60) Est GFR (Non-Af Amer) > 60 (> 60) BUN/Creatinine Ratio 10 (6-26) Glucose 90 (70-105) mg/dL Calculated Osmolality 290 (280-300) Calcium 9.5 (8.6-10.3) mg/dL Troponin I < 0.03 (< 0.04) ng/mL - Radiology Data Radiology results reviewed: Yes I reviewed the patient's radiology results. - EKG Data EKG attestation: Yes I reviewed and interpreted this EKG. EKG results narrative: Right-sided EKG obtained at 15:04 on 03/07/2019 Heart rate 82 beats were minute, NC interval 161, QRS duration 97, QT 378, QTC 416 Normal progression of anterior and lateral leads for right-sided EKG that is concurrent with patient's dextrocardia. There are no ST segment elevations or depressions, but the T waves appear flattened in all leads. No other acute abnormalities. Unchanged when compared to previous EKG dated 01/03/2015 with the exception of the T-wave flattening. Heart Score - Score History: Moderately Suspicious EKG: Non Specific repolarisation Disturbance Age: 45-65 Risk Factors: Equal/Greater than 3 risk factor or history of atherosclerotic disease Troponin: Less than normal limit HEART Score Total: 5 Attestation Statement - Attestation Attestation: I have seen this patient with the resident physician, I have personally evaluated this patient. I had reviewed the chart and document dictation by the resident physician and aM in agreement with the information documented by the resident physician. Please see documentation by the resident physician for complete chart including past medical history, family medical history, review of systems, current history and physical and laboratory and imaging studies. I was present for all procedures, provided direct supervision for all procedures, was present for the entirety of all procedures and provided direct guidance during the procedures. Please see documentation by the resident physician for any procedures performed.
[2019-03-07 16:06] LABS: Basophils % 0.4 %; Eosinophils # 0.3 K/mcL (0.0-0.6); Eosinophils % 2.9 %; Hematocrit 40.5 % (37.5-50.1); Hemoglobin 13.8 g/dL (12.9-16.9); Immature Granulocytes % 0.3 % (0-4); Lymphocytes # 2.6 K/mcL (0.6-4.6); Lymphocytes % 26.9 %; Mean Corpuscular HGB Conc 34.1 g/dL (31.6-35.5); Mean Corpuscular Hemoglobin 29.8 pg (28.0-33.3); Mean Corpuscular Volume 87.5 fL (83.0-100.0); Mean Platelet Volume 10.6 fL (9.4-12.4); Monocytes # 0.9 K/mcL (0.0-1.3); Monocytes % 9.1 %; Neutrophils # 5.8 K/mcL (1.6-8.9); Platelet Count 211 K/mcL (140-400); Red Blood Count 4.63 M/mcL (4.19-5.50); Red Cell Distribution Width 12.9 % (11.5-14.5); Segmented Neutrophils % 60.4 %
--- NOTE | 2019-03-07 16:22 | Emergency Department Note ---
Disposition Clinical Impression: Chest pain, Methamphetamine use Disposition: Admitted As Inpatient Condition: Fair Referrals: Dario Nguyen MD [Primary Care Provider] - Forms: ED Satisfaction Letter General Adult HPI - General Chief complaint: ED Chest Pain Stated complaint: CP Time Seen by Provider: 03/07/19 15:15 Source: patient Limitations: no limitations - History of Present Illness Pain Scale: 9 - Related Data Home Medications Medication Instructions Recorded Confirmed Albuterol Sulfate [Ventolin Hfa] 2 puff IH Q4H PRN 12/05/15 12/05/15 Budesonide/Formoterol 160/4.5 2 puff IH BIDR 12/05/15 12/05/15 [Symbicort 160/4.5] Citalopram Hydrobromide [Celexa] 40 mg PO DAILY 12/05/15 12/05/15 Fluticasone Propionate Nasal 1 spray NS BID 12/05/15 12/05/15 [Flonase] Folic Acid 0.4 mg PO DAILY 12/05/15 12/05/15 Losartan Potassium [Cozaar] 100 mg PO DAILY 12/05/15 12/05/15 Meloxicam [Mobic] 15 mg PO DAILY 12/05/15 12/05/15 Montelukast [Singulair] 10 mg PO HS 12/05/15 12/05/15 Multivitamin [Multi-Day Vitamins] 1 each PO DAILY 12/05/15 12/05/15 Oxygen 2 l NS AD 12/05/15 12/05/15 Paliperidone [Invega] 6 mg PO DAILY 12/05/15 12/05/15 Pantoprazole Sodium [Protonix] 40 mg PO DAILY 12/05/15 12/05/15 Pravastatin Sodium [Pravachol] 20 mg PO HS 12/05/15 12/05/15 diazePAM [Valium] 5 mg PO TID 12/05/15 12/05/15 lamoTRIgine [Lamictal] 200 mg PO BID 12/05/15 12/05/15 Previous Rx's Medication Instructions Recorded Aspirin Enteric Coated [Aspirin EC] 325 mg PO BID #60 tablet. 12/06/15 Docusate [Colace] 100 mg PO BID #60 capsule 12/06/15 OxyCODONE Immed Rel [Roxicodone 5 5 - 10 mg PO Q4HR PRN #60 tablet 12/06/15 MG] OxyCODONE/APAP 5/325 [Percocet 1 - 2 each PO Q4HR PRN #90 tablet 12/06/15 5/325 MG] Meloxicam 7.5 mg PO BID #20 tablet 08/27/17 Naproxen [Naprosyn] 250 mg PO BID #10 tablet 06/27/18 Allergies Allergy/AdvReac Type Severity Reaction Status Date / Time acetaminophen AdvReac Itching Verified 08/27/17 13:19 [From Tylenol-Codeine] cephalexin [From Keflex] AdvReac Nausea Verified 08/27/17 13:19 codeine AdvReac Itching Verified 08/27/17 13:19 [From Tylenol-Codeine] fluoxetine [From Prozac] AdvReac Difficulty Verified 08/27/17 13:19 Swallowing [place] AdvReac Dry Mucus Verified 08/27/17 13:19 Membranes tramadol AdvReac Irritable Verified 08/27/17 13:19 Constitutional: Reports: chills, weakness. Denies: fever Eyes: Denies: vision change ENT ED: Reports: other (jaw pain) Cardiovascular: Reports: chest pain, palpitations, dyspnea on exertion Respiratory: Reports: dyspnea. Denies: cough, wheezes, hemoptysis Gastrointestinal: Reports: nausea. Denies: abdominal pain, vomiting, diarrhea Musculoskeletal: Reports: neck pain. Denies: back pain Integumentary: Denies: rash, abrasion, lesions Neurological: Reports: weakness. Denies: headache, numbness, paresthesias Endocrine: Reports: fatigue Past Medical History - Past Medical History Medical history: Reports: hypertension, other Surgical history: Reports: herniorrhaphy, orthopedic, other, other Psychiatric history: Reports: anxiety, bipolar, depression - Social History Smoking Status: Current every day smoker Smokeless Tobacco Status: No Alcohol use: Reports: none Drug use: Reports: methamphetamine Physical Exam - General Limitations: no limitations General appearance: alert, in no apparent distress Course Vital Signs Temperature 98.2 F 03/07/19 15:00 Pulse Rate 92 03/07/19 15:00 Respiratory Rate 18 03/07/19 15:00 Blood Pressure 111/72 03/07/19 15:00 O2 Sat by Pulse Oximetry 96 03/07/19 15:00 Temperature 98.2 F 03/07/19 15:00 Pulse Rate 92 03/07/19 15:00 Respiratory Rate 18 03/07/19 15:00 Blood Pressure 111/72 03/07/19 15:00 O2 Sat by Pulse Oximetry 96 03/07/19 15:00 Oxygen Delivery Oxygen Delivery Room Air Medical Decision Making - Lab Data Result diagrams: 03/07/19 15:22 Lab Results 03/07/19 Range/Units 15:22 WBC 9.6 (4.3-11.1) K/mcL RBC 4.63 (4.19-5.50) M/mcL Hgb 13.8 (12.9-16.9) g/dL Hct 40.5 (37.5-50.1) % MCV 87.5 (83.0-100.0) fL MCH 29.8 (28.0-33.3) pg MCHC 34.1 (31.6-35.5) g/dL RDW 12.9 (11.5-14.5) % Plt Count 211 (140-400) K/mcL MPV 10.6 (9.4-12.4) fL Immature Gran % 0.3 (0-4) % Seg Neutrophils % 60.4 % Lymphocytes % 26.9 % Monocytes % 9.1 % Eosinophils % 2.9 % Basophils % 0.4 % Neutrophils # 5.8 (1.6-8.9) K/mcL Lymphocytes # 2.6 (0.6-4.6) K/mcL Monocytes # 0.9 (0.0-1.3) K/mcL Eosinophils # 0.3 (0.0-0.6) K/mcL Basophils # 0.0 (0.0-0.2) K/mcL Attestation Statement - Attestation Attestation: I have seen this patient with the resident physician, I have personally evaluated this patient. I had reviewed the chart and document dictation by the resident physician and aM in agreement with the information documented by the resident physician. Please see documentation by the resident physician for complete chart including past medical history, family medical history, review of systems, current history and physical and laboratory and imaging studies. I was present for all procedures, provided direct supervision for all procedures, was present for the entirety of all procedures and provided direct guidance during the procedures. Please see documentation by the resident physician for any procedures performed. Patient presents emergency Department with chief complaint of chest pain. He was seen here earlier today and signed out AGAINST MEDICAL ADVICE, he had chest pain associated with using methamphetamine. States the chest pain worsened and he decided to come back. EKG shows no acute changes from prior EKG from this morning, nonspecific T-wave abnormality. Basic laboratory studies were ordered. Patient will be admitted to the hospital for further evaluation and management of chest pain pending his evaluation here in the emergency department. He has no tearing or ripping sensation no widened mediastinum, no tachycardia, no pleuritic pain nothing to suggest pulmonary embolism or aortic dissection.
[2019-03-07 16:24] LABS: BUN/Creatinine Ratio 10 (6-26); Blood Urea Nitrogen 8 mg/dL (6-20); Calcium 9.5 mg/dL (8.6-10.3); Carbon Dioxide 31 mEq/L (23-29); Chloride 106 mEq/L (98-107); Glucose 90 mg/dL (70-105); Osmolality,Calculated 290 (280-300); Potassium 3.5 mEq/L (3.5-5.1); Sodium 141 mEq/L (136-145); Troponin I < 0.03 ng/mL (< 0.04); eGFR For Non-African Americans > 60 (> 60)
[2019-03-07] MEDS ORDERED: Naloxone 0.4 MG/ML INJ IVP PRN (16:58)
[2019-03-07] MEDS ORDERED: D5% in Water 1,000 ML IVC PRN (17:03)
[2019-03-07] MEDS ORDERED: *HR* Dextrose 50 % in Water (Syg) 50 ML SYRINGE IVP PRN (17:03)
[2019-03-07] MEDS ORDERED: Dextrose Gel 15 GM/37.5 ML TUBE PO PRN ×2 (17:03)
--- NOTE | 2019-03-07 17:10 | Internal Med History&Physical ---
Date of Encounter: 03/07/19 Time of Encounter: 17:06 Internal Medicine - H&P: HPI Chief complaint: chest pain Admitted From: Home Plans for Post Hospital Care: Home History of present illness: Mr. Thomas is a 53 year old male with history of COPD, obesity, HTN and DM [facility] with complaint of chest pain as per patient he has deborah up all night smiking "Dope" at about 4 AM he stopped using illicit drugs and develoepd sudden onset of chest pain that is located in the left side of his chest and radiates to the right neck. he describes the pain as 10/10 on severity and sharp in nature. denies previous episodes of the pain. denies chest trauma, leg swelling history of blood clots, DVts or PE in the past. he is an everyday smoker with up to 2 packs of cigarettes. he denies alcohol use. denies fever, chils, SOB, palpitations, PND, orthopnea, N/v/D. denies SI or HI while in the ED he was found to have tox positive methamphetamines, benzo and marijuana. troponin was negative, CXR showed dextrocardia without acute process and he was endorsed for admission of chest pain. approx. one hour after admission he left AMA and came back to the hospital to be readmitted for similar complaints. troponin was repeated which was negative. CXR without mediastenal widening. He denies doing any more meth when he got home earlier today. 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 - Social History Smoking Status: Current every day smoker Smokeless Tobacco Status: No Alcohol use: none Drug use: methamphetamine - Family History Daughter Living Status: Still Living Hx Family Cardiac Disorders: No Hx Family Respiratory Disorders: No Hx Family Cancer: No Hx Family Neuromuscular Disorders: Yes (fibromyalgia) Internal Medicine - H&P: Meds Albuterol Sulfate [Ventolin Hfa] 2 puff IH Q4H PRN 12/05/15 [History] Budesonide/Formoterol 160/4.5 [Symbicort 160/4.5] 2 puff IH BIDR 12/05/15 [History] Citalopram Hydrobromide [Celexa] 40 mg PO DAILY 12/05/15 [History] Fluticasone Propionate Nasal [Flonase] 1 spray NS BID 12/05/15 [History] Folic Acid 0.4 mg PO DAILY 12/05/15 [History] Losartan Potassium [Cozaar] 100 mg PO DAILY 12/05/15 [History] Meloxicam [Mobic] 15 mg PO DAILY 12/05/15 [History] Montelukast [Singulair] 10 mg PO HS 12/05/15 [History] Multivitamin [Multi-Day Vitamins] 1 each PO DAILY 12/05/15 [History] Oxygen 2 l NS AD 12/05/15 [History] Paliperidone [Invega] 6 mg PO DAILY 12/05/15 [History] Pantoprazole Sodium [Protonix] 40 mg PO DAILY 12/05/15 [History] Pravastatin Sodium [Pravachol] 20 mg PO HS 12/05/15 [History] diazePAM [Valium] 5 mg PO TID 12/05/15 [History] lamoTRIgine [Lamictal] 200 mg PO BID 12/05/15 [History] Aspirin Enteric Coated [Aspirin EC] 325 mg PO BID #60 tablet. 12/06/15 [Rx] Docusate [Colace] 100 mg PO BID #60 capsule 12/06/15 [Rx] OxyCODONE Immed Rel [Roxicodone 5 MG] 5 - 10 mg PO Q4HR PRN #60 tablet 12/06/15 [Rx] OxyCODONE/APAP 5/325 [Percocet 5/325 MG] 1 - 2 each PO Q4HR PRN #90 tablet 12/06/15 [Rx] Meloxicam 7.5 mg PO BID #20 tablet 08/27/17 [Rx] Naproxen [Naprosyn] 250 mg PO BID #10 tablet 06/27/18 [Rx] Allergy/AdvReac Type Severity Reaction Status Date / Time acetaminophen AdvReac Itching Verified 08/27/17 13:19 [From Tylenol-Codeine] cephalexin [From Keflex] AdvReac Nausea Verified 08/27/17 13:19 codeine AdvReac Itching Verified 08/27/17 13:19 [From Tylenol-Codeine] fluoxetine [From Prozac] AdvReac Difficulty Verified 08/27/17 13:19 Swallowing [place] AdvReac Dry Mucus Verified 08/27/17 13:19 Membranes tramadol AdvReac Irritable Verified 08/27/17 13:19 All Systems PM: A 10-system review of systems was performed and is negative for pertinent findings except as documented above in the HPI. - Constitutional Vitals: Temp Pulse Resp BP Pulse Ox 98.2 F 92 18 111/72 96 03/07/19 15:00 03/07/19 15:00 03/07/19 15:00 03/07/19 15:00 03/07/19 15:00 Exam: General: Patient is alert, oriented, no acute distress, morbidly obese Head: atraumatic, normocephalic, Eye: normal appearance, PERRL, no scleral icterus, no conjunctival injection ENT: mucous membranes moist, normal external ear exam Neck: normal inspection, trachea midline, full ROM, no carotid bruits Chest: normal inspection, symmetric chest rise Respiratory: distant breath sounds secondary to body habitus, Good respiratory effort. Bilateral breath sounds are clear without wheezing, crackles, or rhonchi. Cardiovascular: distant heart sounds secondary to body habitus, heart sounds in the right chest , Regular rate and rhythm. s1 and s2 No clicks, rubs, gallops, or murmors. Abdomen: Bowel sounds present normoactive x-4 quadrants. Abdomen is soft, nondistended. no Epigastric tenderness. No guarding or rebound. No organomegaly noted, obese musculoskeletal: Spontaneously moving all extremities. no edema, no calf tenderness Skin: warm, dry, intact. Neuro: Alert and oriented x4. no focal deficit Psych: Patient's affect is normal, denies SI or HI Internal Med - H&P Results - Labs CBC & Chem 7: 03/07/19 15:22 03/07/19 15:22 Labs: Short CBC 03/07/19 Range/Units 15:22 WBC 9.6 (4.3-11.1) K/mcL Hgb 13.8 (12.9-16.9) g/dL Hct 40.5 (37.5-50.1) % Plt Count 211 (140-400) K/mcL Neutrophils # 5.8 (1.6-8.9) K/mcL BMP 03/07/19 15:22 Sodium 141 Potassium 3.5 Chloride 106 Carbon Dioxide 31 H BUN 8 Creatinine 0.81 Glucose 90 Calcium 9.5 Cardiac Enzymes 03/07/19 Range/Units 15:22 Troponin I < 0.03 (< 0.04) ng/mL - EKG Data -: EKG Interpreted by Myself EKG shows normal: sinus rhythm (leads reversed, non-specific St-t changes prolonged QT ) - EKG Data Prior EKG available for review: no - Impressions ITS Impressions Chest X-Ray 03/07/19 15:22 IMPRESSION: 1. Patchy interstitial opacities in the lung bases may represent mild pulmonary edema or pneumonia. 2. Dextrocardia. D/ / Faisal Gomez MD / Faisal Gomez MD Interpreting Provider: Faisal Gomez MD - Assessment and Plan (1) Chest pain Current Visit: Yes Status: Acute Assessment and plan: chest pain most likely secondary to illicit drug use rule out ACS obtain another EKG with leads properly placed as he has dextrocardia EKG STAT as he left AMA and EKG was not repeated in the ED upon return cardiac monitoring ASA 325 mg one continue with ASA 81 mg daily along with home dose statins serial troponins and ekgs echocardiogram continue with home medications if not CI NTG PRN for chest pain lipid panel, TSh and A1c in AM BNP stat procalcitonin CXR upon return to the with new interstitial opacities ?edema vs infiterates ( has no fever, EBC count, not tachycardic and saturating 96 % RA) will hold off of abx for now, if he develops SIRS consider starting ABX and treating for PNA Qualifiers: Chest pain type: precordial pain (2) Drug use disorder Current Visit: No Status: Acute Assessment and plan: utox positive for amphetamines and marijuana positive benzos however is prescribed valium thiamine, folic acid (3) Prolonged QT interval Current Visit: No Status: Acute Assessment and plan: QT of 541 magnesium STAT potassium was 3.5- replaced with 40 MEQ oral once maintain potassium >4 and magnesium >2 serial EKGs telemetry (4) Bipolar 1 disorder Current Visit: No Status: Chronic Assessment and plan: continue home medications. (5) COPD (chronic obstructive pulmonary disease) Current Visit: No Status: Chronic Assessment and plan: not in exacerbation continue home inhalers Qualifiers: COPD type: unspecified COPD Qualified Code(s): J44.9 - Chronic obstructive pulmonary disease, unspecified (6) Diabetes mellitus Current Visit: No Status: Chronic Assessment and plan: insulin sliding scale- Adjust as per finger sticks A1c in AM Qualifiers: Diabetes mellitus type: type 2 Diabetes mellitus capital campaign fundraiser insulin use: without capital campaign fundraiser use Diabetes mellitus complication status: without complication Qualified Code(s): E11.9 - Type 2 diabetes mellitus without complications (7) GERD (gastroesophageal reflux disease) Current Visit: No Status: Chronic Assessment and plan: continue with home medications Qualifiers: Esophagitis presence: esophagitis presence not specified Qualified Code(s): K21.9 - Gastro-esophageal reflux disease without esophagitis (8) Hypertension Current Visit: No Status: Chronic Assessment and plan: continue home medications if not CI Qualifiers: Hypertension type: essential hypertension Qualified Code(s): I10 - Essential (primary) hypertension (9) Obesity Current Visit: No Status: Chronic Assessment and plan: was counseled Qualifiers: Obesity type: due to excess calories Obesity classification: adult class 2 (BMI 35 - 39.9) Body mass index: BMI 37.0-37.9 Qualified Code(s): E66.01 - Morbid (severe) obesity due to excess calories; Z68.37 - Body mass index (BMI) 37.0-37.9, adult (10) Methamphetamine use Current Visit: Yes Status: Acute Assessment and plan: was counseled (11) Dextrocardia Current Visit: Yes Status: Acute Assessment and plan: as seen on CXR ensure leads are reversed when obtaining EKG (12) DVT prophylaxis Current Visit: No Status: Acute Assessment and plan: heparin sc - Time Spent With Patient Total time spent is greater than 50% in coordination of care (as documented) at patient's floor/unit and/or counseling patient:
[2019-03-07] MEDS ORDERED: Furosemide 20 MG/2 ML VIAL IVP ONE (17:55)
[2019-03-07] MEDS ORDERED: Ketorolac 15 MG/ML VIAL IVP ONE (19:34)
[2019-03-07] MEDS ORDERED: Perflutren Lipid Microsphere 1.3 ML in 0.9 % Sodium Chloride 8.7 ML IVP ONE (20:53)
[2019-03-07] MEDS: *HR* Heparin 5,000 UNIT/ML VIAL SQ SCH (20:56)
[2019-03-07] MEDS ORDERED: Insulin LISPRO 300 UNITS/3 ML VIAL SQ SCH (21:00)
[2019-03-07] MEDS ORDERED: diazePAM 5 MG TABLET PO SCH (21:00)
[2019-03-07] MEDS: Ipratropium/Albuterol Neb 3 ML IH SCH (21:00)
[2019-03-07 21:28] LABS: Magnesium 2.1 mg/dL (1.6-2.6); Troponin I < 0.03 ng/mL (< 0.04)
[2019-03-07] MEDS ORDERED: Budesonide/Formoterol 160/4.5 1 PUFF INH IH SCH (22:00)
[2019-03-08] MEDS: Ipratropium/Albuterol Neb 3 ML IH SCH ×2 (00:05→04:37)
[2019-03-08] MEDS ORDERED: Ketorolac 15 MG/ML VIAL IVP ONE (03:35)
[2019-03-08 03:55] LABS: Hematocrit 39.6 % (37.5-50.1); Hemoglobin 13.4 g/dL (12.9-16.9); Mean Corpuscular HGB Conc 33.8 g/dL (31.6-35.5); Mean Corpuscular Hemoglobin 29.7 pg (28.0-33.3); Mean Corpuscular Volume 87.8 fL (83.0-100.0); Mean Platelet Volume 10.5 fL (9.4-12.4); Platelet Count 186 K/mcL (140-400); Red Blood Count 4.51 M/mcL (4.19-5.50)
[2019-03-08 04:07] VITALS: BP 134/64
[2019-03-08 04:07] LABS: BUN/Creatinine Ratio 16 (6-26); Blood Urea Nitrogen 13 mg/dL (6-20); Calcium 9.3 mg/dL (8.6-10.3); Carbon Dioxide 31 mEq/L (23-29); Chloride 107 mEq/L (98-107); Chol/HDL Ratio 5.3 (0-4.9); Cholesterol 154 mg/dL (< 200); Glucose 101 mg/dL (70-105); HDL Cholesterol 29 mg/dL (40-59); LDL Cholesterol,Calculated 99 mg/dL (0-99); Magnesium 2.2 mg/dL (1.6-2.6); Osmolality,Calculated 290 (280-300); Phosphorous 4.7 mg/dL (2.7-4.5); Potassium 3.3 mEq/L (3.5-5.1); Sodium 140 mEq/L (136-145); Triglycerides 131 mg/dL (< 150); eGFR For Non-African Americans > 60 (> 60)
[2019-03-08] MEDS: *HR* Heparin 5,000 UNIT/ML VIAL SQ SCH (04:50)
[2019-03-08] MEDS ORDERED: Insulin LISPRO 300 UNITS/3 ML VIAL SQ SCH (07:30)
[2019-03-08] MEDS ORDERED: Aspirin 81 MG TAB.CHEW PO SCH (09:00)
[2019-03-08 10:59] LABS: Estimated Average Glucose 117 mg/dl; Hemoglobin A1C 5.7 %
--- NOTE | 2019-03-08 15:09 | Electrocardiograph Report ---
[place] [id number] Test Date: 2019-03-07 Pat Name: Colby Thomas Department: [id number] Room: 3B48 Gender: M Technical Service Engineer: : [id number] Requested By: Radha Pepe Order Number: [id number] Reading MD: Johnathan Manzo Measurements Intervals [place] Rate: 85 P: 164 NC: 172 QRS: 184 QRSD: 86 T: 166 QT: 498 QTc: 593 Interpretive Statements Sinus or ectopic atrial rhythm Abnormal R wave proression Electronically Signed On 03-08-2019 15:08:03 EDT by Johnathan Manzo
--- NOTE | 2019-03-08 15:24 | Electrocardiograph Report ---
[address] [address] Test Date: 2019-03-07 Pat Name: Colby Thomas Department: 104 Room: 3B Gender: M Metal Precision Machine Assembler: Msc : [id number] Requested By: Radha Pepe Order Number: [id number] Reading MD: Johnathan Manzo Measurements Intervals [place] Rate: 82 P: 204 MO: 161 QRS: 156 QRSD: 97 T: 118 QT: 378 QTc: 416 Interpretive Statements ECTOPIC ATRIAL RHYTHM Electronically Signed On 03-08-2019 15:23:01 EDT by Johnathan Manzo
== END 2019-03-08 06:05 | disposition left against medical advice (07) ==
LOC: 3BNU 14:52 → EMEROOARM 14:52 → 3BNU 18:30
PROVIDERS: ADMIT Internal Medicine; ATTEND Internal Medicine

== ENCOUNTER 2020-08-31 14:01 | Observation (INO) ==
[2020-08-31] MEDS ORDERED: Isovue-370 500 ML BOTTLE IVP ONE ×2 (15:02→17:38)
[2020-08-31] MEDS ORDERED: Vancomycin 2,000 MG/520 ML IV.SOLN IVPB ONE (15:03)
[2020-08-31] MEDS ORDERED: Piperacillin/Tazobactam 3.375 GM in Water for inj. (sterile) 20 ML IVP ONE (15:03)
[2020-08-31 15:46] LABS: Basophils # 0.1 K/mcL (0.0-0.2); Basophils % 0.7 %; Eosinophils # 0.4 K/mcL (0.0-0.6); Eosinophils % 5.4 %; Hematocrit 38.8 % (37.5-50.1); Hemoglobin 12.3 g/dL (12.9-16.9); Immature Granulocytes % 0.7 % (0-4); Lymphocytes # 1.3 K/mcL (0.6-4.6); Lymphocytes % 18.8 %; Mean Corpuscular HGB Conc 31.7 g/dL (31.6-35.5); Mean Corpuscular Hemoglobin 28.7 pg (28.0-33.3); Mean Corpuscular Volume 90.7 fL (83.0-100.0); Mean Platelet Volume 10.8 fL (9.4-12.4); Monocytes # 0.6 K/mcL (0.0-1.3); Monocytes % 8.2 %; Neutrophils # 4.5 K/mcL (1.6-8.9); Platelet Count 183 K/mcL (140-400); Red Blood Count 4.28 M/mcL (4.19-5.50); Red Cell Distribution Width 13.4 % (11.5-14.5); Segmented Neutrophils % 66.2 %; White Blood Count 6.9 K/mcL (4.3-11.1)
[2020-08-31 15:50] LABS: VBG HCO3 30 mEq/L (21-27); VBG PCO2 49 mmHg (41-51); VBG PH 7.39 pH Units (7.32-7.42); VBG PO2 54 mmHg (25-50)
[2020-08-31 15:54] LABS: Bilirubin,Urine Negative (Negative); Blood,Urine Negative (Negative); Clarity,Urine Clear (Clear); Color,Urine Colorless (Yellow); Glucose,Urine (UA) >=1000 mg/dL (Normal); Hyaline Casts,Urine Few per lpf (None Seen); Ketones,Urine Negative (Negative); Leukocyte Esterase,Urine Negative (Negative); Mucus,Urine Few per lpf (None-Few); Nitrite,Urine Negative (Negative); Protein,Urine Negative (Neg-Trace); RBC,Urine 0-3 per hpf (0-3); Specific Gravity,Urine 1.009 (1.010-1.025); Urobilinogen,Urine Normal (Normal); WBC,Urine 0-3 per hpf (0-3)
[2020-08-31 16:08] LABS: BUN/Creatinine Ratio 13 (6-26); Blood Urea Nitrogen 10 mg/dL (6-20); Calcium 9.4 mg/dL (8.6-10.3); Carbon Dioxide 29 mEq/L (23-29); Chloride 98 mEq/L (98-107); Glucose 348 mg/dL (70-105); Osmolality,Calculated 293 (280-300); Potassium 4.1 mEq/L (3.5-5.1); Sodium 135 mEq/L (136-145); Troponin I < 0.03 ng/mL (< 0.04); eGFR For African Americans > 60 (> 60); eGFR For Non-African Americans > 60 (> 60)
[2020-08-31] MEDS ORDERED: Ipratropium/Albuterol Neb 3 ML IH ONE (17:30)
[2020-08-31] MEDS ORDERED: Tdap (Boostrix) Vaccine 0.5 ML SYRINGE IM ONE (17:34)
[2020-08-31] MEDS ORDERED: Furosemide 40 MG/4 ML VIAL IVP ONE (18:54)
[2020-08-31 19:11] LABS: Adenovirus Not Detected (Not Detect); Bordetella Pertussis Not Detected (Not Detect); Chlamydophila pneumoniae Not Detected (Not Detect); Coronavirus 229E Not Detected (Not Detect); Coronavirus HKU1 Not Detected (Not Detect); Coronavirus NL63 Not Detected (Not Detect); Coronavirus OC43 Not Detected (Not Detect); Human Metapneumovirus Not Detected (Not Detect); Human Rhinovirus/Enterovirus DETECTED (Not Detect); Influenza A Subtype 2009 H1 Not Detected (Not Detect); Influenza B Not Detected (Not Detect); Mycoplasma pneumoniae Not Detected (Not Detect); Parainfluenza Virus 1 Not Detected (Not Detect); Parainfluenza Virus 2 Not Detected (Not Detect); Parainfluenza Virus 3 Not Detected (Not Detect); Parainfluenza Virus 4 Not Detected (Not Detect); Respiratory Syncytial Virus Not Detected (Not Detect); SARS-CoV-2 Not Detected (Not Detect)
[2020-08-31] MEDS ORDERED: Naloxone 0.4 MG/ML INJ IVP PRN (20:37)
[2020-08-31] MEDS: Acetaminophen 325 MG TABLET PO PRN (22:43)
[2020-08-31] MEDS ORDERED: *HR* Dextrose 50 % in Water (Vial) 50 ML VIAL IVP PRN (22:45)
[2020-08-31] MEDS ORDERED: D5% in Water 1,000 ML IVC PRN (22:45)
[2020-08-31] MEDS ORDERED: Dextrose Gel 15 GM/37.5 ML TUBE PO PRN ×2 (22:45)
[2020-08-31] MEDS: Insulin LISPRO 300 UNITS/3 ML VIAL SQ SCH (22:54)
[2020-09-01] MEDS ORDERED: Perflutren Lipid Microsphere 1.3 ML in 0.9 % Sodium Chloride 8.7 ML IVP PRN (02:22)
[2020-09-01] MEDS: Nystatin POWDER 30 GM BOTTLE TP SCH ×4 (02:57→21:58)
[2020-09-01] MEDS ORDERED: *HR* Heparin 5,000 UNIT/ML VIAL SQ SCH (06:00)
[2020-09-01] MEDS: Acetaminophen 325 MG TABLET PO PRN (06:56)
[2020-09-01] MEDS: Furosemide 40 MG/4 ML VIAL IVP SCH ×2 (08:55→22:05)
[2020-09-01] MEDS: Insulin LISPRO 300 UNITS/3 ML VIAL SQ SCH ×7 (08:56→22:06)
[2020-09-01 09:36] LABS: Hemoglobin 12.5 g/dL (12.9-16.9); Mean Corpuscular HGB Conc 32.1 g/dL (31.6-35.5); Mean Corpuscular Hemoglobin 29.4 pg (28.0-33.3); Mean Corpuscular Volume 91.8 fL (83.0-100.0); Mean Platelet Volume 10.4 fL (9.4-12.4); Platelet Count 178 K/mcL (140-400); Red Blood Count 4.25 M/mcL (4.19-5.50); Red Cell Distribution Width 13.7 % (11.5-14.5); White Blood Count 6.4 K/mcL (4.3-11.1)
[2020-09-01 09:56] LABS: Phosphorous 3.3 mg/dL (2.7-4.5)
[2020-09-01 09:59] LABS: Alanine Aminotransferase 40 Units/L (7-52); Albumin 3.5 g/dL (3.5-5.7); Albumin/Globulin Ratio 1.1 (1.1-2.2); Alkaline Phosphatase 97 Units/L (34-104); Aspartate Amino Transferase 40 Units/L (13-39); BUN/Creatinine Ratio 13 (6-26); Bilirubin,Total 0.5 mg/dL (0.3-1.0); Blood Urea Nitrogen 9 mg/dL (6-20); Calcium 9.1 mg/dL (8.6-10.3); Carbon Dioxide 32 mEq/L (23-29); Chloride 100 mEq/L (98-107); Globulin 3.1 g/dL (2.4-3.5); Glucose 286 mg/dL (70-105); Osmolality,Calculated 291 (280-300); Sodium 136 mEq/L (136-145); Total Protein 6.6 g/dL (6.4-8.9); eGFR For African Americans > 60 (> 60); eGFR For Non-African Americans > 60 (> 60)
[2020-09-01 10:39] LABS: ABG Base Excess 8 mEq/L (-2 to 3); ABG HCO3 33 mEq/L (21-27); ABG Oxygen Saturation 93 % (95-98); ABG PCO2 46 mmHg (35-45); ABG PH 7.46 pH Units (7.32-7.45); ABG PO2 63 mmHg (85-104); ABG TCO2 34 mEq/L (20-26)
[2020-09-01] MEDS: Ipratropium/Albuterol Neb 3 ML IH SCH ×4 (10:40→22:08)
[2020-09-01] MEDS ORDERED: *HR* Heparin 5,000 UNIT/ML VIAL IVP PRN ×2 (12:20)
[2020-09-01] MEDS ORDERED: *HR* Heparin 5,000 UNIT/ML VIAL IVP ONE (12:20)
[2020-09-01] MEDS ORDERED: Heparin 25,000UNIT/250ML 1/2NS 25,000 UNIT/250 ML IV.SOLN IVC SCH (12:30)
[2020-09-01] MEDS: Aspirin Enteric Coated 81 MG Tablet PO SCH (15:17)
[2020-09-01] MEDS: Gabapentin 400 MG CAPSULE PO SCH ×2 (15:17→22:05)
[2020-09-01] MEDS: Losartan/HCTZ 50-12.5 TABLET PO SCH (15:17)
[2020-09-01] MEDS: diazePAM 10 MG TABLET PO SCH ×3 (15:18→22:02)
[2020-09-01] MEDS: Budesonide/Formoterol 160/4.5 1 PUFF INH IH SCH ×2 (15:46→22:08)
[2020-09-01 16:34] LABS: INR 1.1; Prothrombin Time 12.9 Seconds (9.4-12.1)
[2020-09-01 16:35] LABS: Heparin anti-factor XA UFH < 0.04 IU/mL (0.30-0.70)
[2020-09-01] MEDS: MethylPREDNISolone 40 MG/ML VIAL IVP SCH (17:59)
[2020-09-01] MEDS: Nicotine 21 MG PATCH.TD24 TD SCH (17:59)
[2020-09-01] MEDS: Vancomycin 2,000 MG/520 ML IV.SOLN IVPB SCH (18:00)
[2020-09-01 18:33] LABS: Estimated Average Glucose 358 mg/dl
[2020-09-01] MEDS ORDERED: Insulin DETEMIR 100 UNIT/ML X5UNITS SQ SCH (21:00)
[2020-09-01] MEDS: lamoTRIgine 100 MG TABLET PO SCH (22:03)
[2020-09-01] MEDS: *HR* Heparin 5,000 UNIT/ML VIAL SQ SCH (22:05)
[2020-09-01] MEDS: Piperacillin/Tazobactam 3.375 GM in 0.9 % Sodium Chloride Mini Bag 100 ML IVPB SCH (23:17)
[2020-09-02] MEDS: Ipratropium/Albuterol Neb 3 ML IH SCH ×4 (04:06→21:19)
[2020-09-02] MEDS: MethylPREDNISolone 40 MG/ML VIAL IVP SCH (05:50)
[2020-09-02] MEDS: *HR* Heparin 5,000 UNIT/ML VIAL SQ SCH ×3 (05:50→21:14)
[2020-09-02] MEDS: Vancomycin 2,000 MG/520 ML IV.SOLN IVPB SCH ×2 (05:51→17:29)
[2020-09-02 06:09] LABS: Hematocrit 39.4 % (37.5-50.1); Hemoglobin 12.5 g/dL (12.9-16.9); Mean Corpuscular HGB Conc 31.7 g/dL (31.6-35.5); Mean Corpuscular Hemoglobin 28.6 pg (28.0-33.3); Mean Corpuscular Volume 90.2 fL (83.0-100.0); Mean Platelet Volume 10.7 fL (9.4-12.4); Platelet Count 211 K/mcL (140-400); Red Blood Count 4.37 M/mcL (4.19-5.50); Red Cell Distribution Width 13.3 % (11.5-14.5); White Blood Count 8.2 K/mcL (4.3-11.1)
[2020-09-02 06:31] LABS: BUN/Creatinine Ratio 16 (6-26); Blood Urea Nitrogen 14 mg/dL (6-20); Calcium 9.2 mg/dL (8.6-10.3); Carbon Dioxide 27 mEq/L (23-29); Chloride 96 mEq/L (98-107); Glucose 602 mg/dL (70-105); Magnesium 2.1 mg/dL (1.6-2.6); Osmolality,Calculated 304 (280-300); Phosphorous 4.1 mg/dL (2.7-4.5); Potassium 4.2 mEq/L (3.5-5.1); Sodium 133 mEq/L (136-145); eGFR For African Americans > 60 (> 60); eGFR For Non-African Americans > 60 (> 60)
[2020-09-02] MEDS ORDERED: Insulin LISPRO 300 UNITS/3 ML VIAL SQ SCH ×2 (06:39→23:45)
[2020-09-02] MEDS: Insulin LISPRO 300 UNITS/3 ML VIAL SQ SCH ×7 (06:45→17:32)
[2020-09-02] MEDS ORDERED: Furosemide 40 MG TABLET PO SCH (09:00)
[2020-09-02] MEDS: Aspirin Enteric Coated 81 MG Tablet PO SCH (09:15)
[2020-09-02] MEDS: diazePAM 10 MG TABLET PO SCH ×3 (09:16→20:39)
[2020-09-02] MEDS: lamoTRIgine 100 MG TABLET PO SCH ×2 (09:16→20:40)
[2020-09-02] MEDS: Gabapentin 400 MG CAPSULE PO SCH ×3 (09:16→20:40)
[2020-09-02] MEDS: Losartan/HCTZ 50-12.5 TABLET PO SCH (09:16)
[2020-09-02] MEDS: Nicotine 21 MG PATCH.TD24 TD SCH (09:17)
[2020-09-02] MEDS: Piperacillin/Tazobactam 3.375 GM in 0.9 % Sodium Chloride Mini Bag 100 ML IVPB SCH ×3 (09:17→23:56)
[2020-09-02] MEDS: Insulin DETEMIR 100 UNIT/ML X5UNITS SQ SCH ×2 (09:18→20:40)
[2020-09-02] MEDS: Budesonide/Formoterol 160/4.5 1 PUFF INH IH SCH ×2 (09:58→21:19)
[2020-09-02] MEDS: Nystatin POWDER 30 GM BOTTLE TP SCH ×3 (10:31→20:41)
[2020-09-02] MEDS ORDERED: Insulin Human Regular 10 UNIT in 0.9 % Sodium Chloride 10 ML IV ONE (15:25)
[2020-09-03] MEDS: Ipratropium/Albuterol Neb 3 ML IH SCH ×2 (04:13→09:42)
[2020-09-03 04:51] LABS: Hematocrit 35.8 % (37.5-50.1); Hemoglobin 11.4 g/dL (12.9-16.9); Mean Corpuscular HGB Conc 31.8 g/dL (31.6-35.5); Mean Corpuscular Hemoglobin 29.4 pg (28.0-33.3); Mean Corpuscular Volume 92.3 fL (83.0-100.0); Mean Platelet Volume 10.5 fL (9.4-12.4); Platelet Count 190 K/mcL (140-400); Red Blood Count 3.88 M/mcL (4.19-5.50); Red Cell Distribution Width 13.7 % (11.5-14.5)
[2020-09-03 05:05] LABS: BUN/Creatinine Ratio 20 (6-26); Blood Urea Nitrogen 16 mg/dL (6-20); Calcium 8.6 mg/dL (8.6-10.3); Carbon Dioxide 28 mEq/L (23-29); Chloride 100 mEq/L (98-107); Glucose 329 mg/dL (70-105); Osmolality,Calculated 296 (280-300); Phosphorous 3.8 mg/dL (2.7-4.5); Potassium 3.4 mEq/L (3.5-5.1); Sodium 136 mEq/L (136-145); eGFR For African Americans > 60 (> 60); eGFR For Non-African Americans > 60 (> 60)
[2020-09-03] MEDS: *HR* Heparin 5,000 UNIT/ML VIAL SQ SCH (06:11)
[2020-09-03] MEDS: Vancomycin 2,000 MG/520 ML IV.SOLN IVPB SCH (06:12)
[2020-09-03] MEDS: diazePAM 10 MG TABLET PO SCH (07:50)
[2020-09-03] MEDS: Losartan/HCTZ 50-12.5 TABLET PO SCH (07:50)
[2020-09-03] MEDS: Aspirin Enteric Coated 81 MG Tablet PO SCH (07:51)
[2020-09-03] MEDS: lamoTRIgine 100 MG TABLET PO SCH (07:52)
[2020-09-03] MEDS: Gabapentin 400 MG CAPSULE PO SCH (07:52)
[2020-09-03] MEDS: Nicotine 21 MG PATCH.TD24 TD SCH (07:53)
[2020-09-03] MEDS: Insulin DETEMIR 100 UNIT/ML X5UNITS SQ SCH (07:54)
[2020-09-03] MEDS: Insulin LISPRO 300 UNITS/3 ML VIAL SQ SCH ×4 (07:54→12:08)
[2020-09-03] MEDS ORDERED: predniSONE 20 MG TABLET PO SCH (09:00)
[2020-09-03] MEDS ORDERED: Furosemide 40 MG/4 ML VIAL IVP SCH (09:00)
[2020-09-03] MEDS: Piperacillin/Tazobactam 3.375 GM in 0.9 % Sodium Chloride Mini Bag 100 ML IVPB SCH (09:13)
[2020-09-03] MEDS: Budesonide/Formoterol 160/4.5 1 PUFF INH IH SCH (09:52)
[2020-09-03] MEDS: Nystatin POWDER 30 GM BOTTLE TP SCH (10:18)
[2020-09-03 12:04] VITALS: BP 152/82
== END 2020-09-03 12:50 | disposition left against medical advice (07) ==
LOC: EMEROOARM 14:01 → 3NENU 14:01 → SUATTDRO 19:44 → 3NENU 22:09
PROVIDERS: ADMIT Family Medicine; ATTEND Internal Medicine